=== PATIENT | male | born 1965 | race Caucasian/White ===

== ENCOUNTER 2018-01-04 09:34 | Day surgery (SDC) | payer SELFPAY ==
--- NOTE | 2018-01-04 08:26 | HP ---
DATE OF SURGERY: 01/04/2018 ADMISSION DIAGNOSIS: Left cervical lymphadenopathy. ANTICIPATED PROCEDURE: Biopsy. HISTORY OF PRESENT ILLNESS: The patient has lesion left mid neck. PAST MEDICAL HISTORY: ALLERGIES: NONE. MEDICATIONS: None. PAST SURGICAL HISTORY: None recently. SOCIAL HISTORY: Negative. FAMILY HISTORY: Negative. PHYSICAL EXAMINATION: VITAL SIGNS: Normal. CHEST: Clear. COR: Regular. IMPRESSION: Lesion left neck. PLAN: Biopsy.
[~2018-01-04 09:34] MED LIST: Lactated Ringers 1,000 ML IV ONE; Sensorcaine 0.25% 10 ML ONE
[2018-01-04] MEDS ORDERED: Decadron 4 MG INJ IV ONE (09:35)
[2018-01-04] MEDS ORDERED: Quelicin Fliptop 200 MG/10 ML IV ONE (09:35)
[2018-01-04] MEDS ORDERED: DIPRIVAN 200 MG/20 ML IV ONE (09:35)
[2018-01-04] MEDS ORDERED: Zofran 4 MG/2 ML VIAL IV ONE (09:35)
[2018-01-04] MEDS ORDERED: TORAdol 30 mg Injection IV ONE (09:35)
[2018-01-04] MEDS ORDERED: Zemuron 100 MG/10 ML IV ONE (09:35)
[2018-01-04] MEDS ORDERED: Dopram IV ONE (09:35)
[2018-01-04] MEDS ORDERED: BRIDION 200MG/2ML IV ONE (09:35)
[2018-01-04] MEDS ORDERED: SUBLIMAZE 100 MCG/2 ML IV ONE (09:35)
[2018-01-04] MEDS ORDERED: Lactated Ringers 1,000 ML IV SCH (10:00)
[2018-01-04 12:27] VITALS: O2SAT 98
[2018-01-04 13:03] VITALS: BP 123/88; PULSE 58
--- NOTE | 2018-01-05 09:27 | OP ---
SURGERY DATE/TIME: 01/04/2018 1049 PREOPERATIVE DIAGNOSIS: Persistent lymphadenopathy left neck. POSTOPERATIVE DIAGNOSIS: Persistent lymphadenopathy left neck. PROCEDURE: Cervical lymph node biopsy left neck. SURGEON: Slick Rubio M.D. ANESTHESIA: General. COMPLICATIONS: None. CONDITION: Stable. INDICATION: This patient has persistent areas for near a few months. It is not markedly large but it is persistent and is borderline and it is felt indicated to remove. It was marked preoperatively. DESCRIPTION OF PROCEDURE: Taken to surgery. General anesthetic. Routine prep and drape. Time out performed. A transverse incision. A 1 cm x 6 mm succulent lymph node was removed in toto. Hemostasis satisfactory. It was bivalve. Path was sent in formalin and half in saline. Hemostasis satisfactory. Closed with 3-0 Vicryl, 4-0 Vicryl, Steri-Strips. The patient tolerated the procedure satisfactory.
== END 2018-01-04 12:50 | disposition home or self-care (01) ==
LOC: SDC 09:34
PROVIDERS: ATTEND Surgery
PROC: 07B20ZX Excision of Left Neck Lymphatic, Open Approach, Diagnostic (ICD-10-PCS; principal; 2018-01-04)
DX: R59.0 Localized enlarged lymph nodes (principal)
CPT/HCPCS: 88305; 88341; 88342; J0330; J1100; J1885; J2405; J2704; J3010

== ENCOUNTER 2020-02-20 06:31 | Day surgery (SDC) | payer SELFPAY ==
--- NOTE | 2020-02-17 10:33 | HP ---
DATE OF SURGERY: 02/20/2020 ANTICIPATED PROCEDURE: EGD. HISTORY OF PRESENT ILLNESS: The patient is requiring an EGD. He has epigastric pain. He is 54 years old. He has had this for over two weeks with no improvement. PAST MEDICAL HISTORY: ALLERGIES: NONE. MEDICATIONS: None. PAST SURGICAL HISTORY: Cervical lymph node excision. SOCIAL HISTORY: Positive chewing tobacco. ETOH negative. FAMILY HISTORY: Negative. REVIEW OF SYSTEMS: Negative. PHYSICAL EXAMINATION: VITAL SIGNS: Normal. CHEST: Clear. COR: Regular. ABDOMEN: Satisfactory. PLAN: EGD.
[~2020-02-20 06:31] MED LIST changes: -Lactated Ringers 1,000 ML IV ONE; +Lactated Ringers 1,000 ML IV SCH; -Sensorcaine 0.25% 10 ML ONE
[2020-02-20] MEDS ORDERED: DIPRIVAN 200 MG/20 ML IV ONE ×2 (08:19→09:13)
[2020-02-20] MEDS ORDERED: Lactated Ringers 1,000 ML IV ONE (09:28)
[2020-02-20 09:53] VITALS: O2SAT 99
[2020-02-20 10:13] VITALS: BP 131/85; PULSE 65
--- NOTE | 2020-02-20 10:15 | OP ---
SURGERY DATE/TIME: 02/20/2020 0910 PREOPERATIVE DIAGNOSIS: Epigastric discomfort. POSTOPERATIVE DIAGNOSIS: Grade II/III gastroesophageal reflux disease. No hiatal hernia. No other findings. PROCEDURE: EGD. SURGEON: Slick Rubio M.D. ANESTHESIA: MAC. COMPLICATIONS: None. CONDITION: Stable. INDICATION: A patient requiring evaluation. DESCRIPTION OF PROCEDURE: Taken to endoscopy. MAC sedation provided. Scope introduced. Pharyngoesophageal junction normal. Esophagus normal down to esophagogastric junction. Grade II/III gastroesophageal reflux disease. No hiatal hernia. Fundus, body, antrum normal. [employer] biopsy for DELFINO test. Pylorus satisfactory. Duodenal bulb satisfactory. Second portion satisfactory. Scope withdrawn looped upon itself. No hiatal hernia. The patient tolerated the procedure satisfactorily.
== END 2020-02-20 10:15 | disposition home or self-care (01) ==
LOC: SDC 06:31
PROVIDERS: ATTEND Surgery
DX: K21.9 Gastro-esophageal reflux disease without esophagitis (principal)
CPT/HCPCS: 88305; 88342; J2704